=== PATIENT | female | born 1975 | race Caucasian/White ===

== ENCOUNTER → 2024-11-16 | Day surgery (SDC) | payer OTHER ==
[2024-11-14 13:15] LABS: BASOPHILS % 0.5 % (0.0-1.0); EOSINOPHILS # (AUTO) 0.1 (0.0-0.4); EOSINOPHILS % 1.7 % (0.0-6.0); HEMATOCRIT 37.8 % (34.2-44.1); LYMPHOCYTES # (AUTO) 1.3 (1.0-3.2); MEAN CORPUSCULAR HEMOGLOBIN 30.1 pg (28-32); MEAN CORPUSCULAR HGB CONC 34.4 g/dL (31-35); MEAN CORPUSCULAR VOLUME 87.5 fL (81-99); MONOCYTES # (AUTO) 0.4 (0.2-0.8); MONOCYTES % 8.9 % (4.4-11.3); NEUTROPHILS # (AUTO) 2.5 (2.1-6.9); NEUTROPHILS % 58.7 % (38.7-80.0); PLATELET COUNT 237 x10e3/uL (140-360); RED BLOOD COUNT 4.32 x10e6/uL (3.6-5.1); RED CELL DISTRIBUTION WIDTH 12.2 % (11.7-14.4); WHITE BLOOD COUNT 4.17 x10e3/uL (4.8-10.8)
[2024-11-14 13:39] LABS: ANION GAP 14.2 mmol/L (8-16); CALCIUM 9.7 mg/dL (8.4-10.2); CREATININE, SERUM 0.81 mg/dL (0.57-1.11); POTASSIUM 4.2 mmol/L (3.5-5.1)
[~2024-11-16] MED LIST: ACETAMINOPHEN 1000 MG/100 ML 100 ML IV ONE; BUPIVACAINE/EPI 0.5% 30ML SDV-MPF INJ ONE; DEXAMETHASONE SOD PHOS INJ 4 MG/ML SDV ONE; DIPHENHYDRAMINE HCL INJ 50 MG/ML VIAL ONE; FENTANYL CITRATE/PF 100MCG/2 ML INJ ONE; LIDOCAINE HCL 2% LOCAL INJ 5 ML SDV VIAL INJ ONE; MIDAZOLAM HCL 2 MG/2 ML VIAL ONE; ONDANSETRON HCL INJ 2MG/ML 2ML 2 MG/ML VIAL ONE; PAROXETINE HCL20 MG PO; PROPOFOL IV EMULSION 10 MG/ML 20 ML VIAL ONE
[2024-11-16] MEDS: CEFAZOLIN SODIUM 2 GM ONE (09:02)
[2024-11-16] MEDS: LACTATED RINGER'S 1,000 ML ONE (09:02)
[2024-11-16 13:54] VITALS: TEMP 96.9
[2024-11-16 15:25] VITALS: BP 136/84; PULSE 60; RESP 18; O2SAT 98
== END | disposition home or self-care (01) ==
LOC: OR 08:25
PROVIDERS: ATTEND Podiatrist Foot Surgery
DX: M20.12 Hallux valgus (acquired), left foot (principal); M20.42 Other hammer toe(s) (acquired), left foot; F41.9 Anxiety disorder, unspecified; F32.A Depression, unspecified; Z01.810 Encounter for preprocedural cardiovascular examination; Z01.812 Encounter for preprocedural laboratory examination; Z01.818 Encounter for other preprocedural examination; Z79.899 Other long term (current) drug therapy
CPT/HCPCS: 28285 ×2; 28296; 36415; 71046; 80048; 81025; 85025; 93005; C1713 ×4; J0131; J1100; J1200; J2003; J2250; J2405; J2704; J3010; J7121; V2790